=== PATIENT | male | born 1985 | race Two or more races ===

== ENCOUNTER 2020-07-31 21:53 | Emergency (ER) | payer SELFPAY ==
[2020-07-31] MEDS ORDERED: Lidocaine 1% 30 ML SDV INJECT ONE (21:54)
[2020-07-31] MEDS ORDERED: Bacitracin Oint 1 GM U/D Packet TOP ONE (21:54)
[2020-07-31 22:08] VITALS: BP 160/102; PULSE 78
--- NOTE | 2020-07-31 22:28 | EDM.PDOC ---
ED HPI GENERAL MEDICAL PROBLEM - General Chief Complaint: Laceration Stated Complaint: FISHING HOOK IN LEFT HAND Time Seen by Provider: 07/31/20 22:28 Source of Information: Reports: Patient, RN History Limitations: Reports: No Limitations - History of Present Illness INITIAL COMMENTS - FREE TEXT/NARRATIVE: ED with fish hook in left 4th finger [employer]. Attempted to remove per self and unable. - Related Data Allergies Allergy/AdvReac Type Severity Reaction Status Date / Time No Known Allergies Allergy Verified 07/31/20 22:04 Past Medical History - Past Health History Medical/Surgical History: Denies Medical/Surgical History Psychiatric History: Reports: ADHD Social & Family History - Tobacco Use Tobacco Use Status *Q: Never Tobacco User - Caffeine Use Caffeine Use: Reports: Coffee, Soda - Recreational Drug Use Recreational Drug Use: No ED ROS GENERAL - Review of Systems Review Of Systems: Comprehensive ROS is negative, except as noted in HPI. ED EXAM, SKIN/RASH Exam: See Below Exam Limited By: No Limitations General Appearance: Alert, No Apparent Distress Ears: Normal External Exam Nose: Normal Inspection Throat/Mouth: Normal Inspection Head: Atraumatic, Normocephalic Neck: Normal Inspection Respiratory/Chest: No Respiratory Distress, Lungs Clear, Normal Breath Sounds Cardiovascular: Normal Peripheral Pulses, Regular Rate, Rhythm Extremities: Normal Range of Motion Neurological: Alert, Oriented Location, Skin: Upper Extremity, Left (4th finger, left, proximal MIP palmar surface) ED SKIN PROCEDURES - Foreign Body Removal Consent Obtained:: Patient Foreign Body Other Location Comment:: left 4th finger, between MIP and DIP palmar surface Anesthesia Type: Local (1% lidocaine) Findings:: Dkin anesthetized surronding linda, Barbed hooke easily passed thru with needle city driver. Wound cleansed. Dressing per nursing. Tolerated well no complications Course - Vital Signs Last Recorded V/S: Last Vital Signs Temp 96.4 F L 07/31/20 22:04 Pulse 78 07/31/20 22:04 Resp 20 07/31/20 22:04 BP 160/102 H 07/31/20 22:04 Pulse Ox 100 07/31/20 22:04 - Orders/Labs/Meds Meds: Medications Discontinued Medications Generic Name Dose Route Start Last Admin Trade Name Freq PRN Reason Stop Dose Admin Bacitracin 1 dose 07/31/20 21:54 07/31/20 22:11 Bacitracin Oint 1 Gm U/D Packet TOP 07/31/20 21:55 1 dose ONETIME ONE Administration Lidocaine HCl 30 ml 07/31/20 21:54 07/31/20 22:11 Lidocaine 1% 30 Ml Sdv INJECT 07/31/20 21:55 30 ml ONETIME ONE Administration Departure - Departure Time of Disposition: 22:26 Disposition: Home, Self-Care 01 Condition: Good Clinical Impression: Fish hook injury of finger of left hand Qualifiers: Encounter type: initial encounter Qualified Code(s): S69.92XA - Unspecified injury of left wrist, hand and finger(s), initial encounter - Discharge Information *PRESCRIPTION DRUG MONITORING PROGRAM REVIEWED*: No *COPY OF PRESCRIPTION DRUG MONITORING REPORT IN PATIENT CHERYL: No Instructions: Puncture Wound, [id number] Referrals: PCP,None [Primary Care Provider] - Forms: ED Department Discharge Additional Instructions: wash wiht soap and water bandaide dressing follow up if redness swelling or drainage follow up with primary clinic in am to check tetnus status Sepsis Event Note (ED) - Evaluation Sepsis Screening Result: No Definite Risk
== END 2020-07-31 22:30 | disposition home or self-care (01) ==
LOC: DL.ED 21:53
DX: S60.455A Superficial foreign body of left ring finger, initial encounter (principal); W45.8XXA Other foreign body or object entering through skin, initial encounter
CPT/HCPCS: 99282; 99283